=== PATIENT | male | born 1995 | race Two or more races ===

== ENCOUNTER 2019-05-20 10:06 | Emergency (ER) | payer MEDICAID ==
[~2019-05-20] VITALS: Ht 172.7 cm; Wt 77.1 kg
[2019-05-20] MEDS ORDERED: ACETAMINOPHEN/CODEINE#3 (300/30mg) TAB PO ONE (12:15)
[2019-05-20 13:05] VITALS: BP 100/64
== END 2019-05-20 13:13 | disposition home or self-care (01) ==
LOC: ER 10:06
DX: S62.522A Displaced fracture of distal phalanx of left thumb, initial encounter for closed fracture (principal); W13.9XXA Fall from, out of or through building, not otherwise specified, initial encounter; Y93.89 Activity, other specified; Y99.8 Other external cause status; Y92.89 Other specified places as the place of occurrence of the external cause
CPT/HCPCS: 29130; 73140